=== PATIENT | female | born 1930 | race African-American/Black ===

== ENCOUNTER 2017-01-13 14:01 | Emergency (ER) | payer MEDICARE, BC ==
[~2017-01-13] VITALS: Ht 167.6 cm; Wt 72.6 kg
--- NOTE | 2017-01-13 14:07 | NUR ---
PT IS IN ROOM #1B. DR VERDUZCO EVALUATED THE PT.
[2017-01-13] MEDS ORDERED: OMEP20CA10 PO (14:16)
[2017-01-13] MEDS ORDERED: MECL-102 PO (14:16)
[2017-01-13] MEDS ORDERED: CLON0.1T PO (14:16)
[2017-01-13] MEDS ORDERED: GABA-534 PO (14:16)
[2017-01-13] MEDS ORDERED: LEVO25TA9 PO (14:16)
[2017-01-13] MEDS ORDERED: RIVA15TA2 PO (14:16)
[2017-01-13] MEDS ORDERED: PARO20TA7 PO (14:16)
[2017-01-13] MEDS ORDERED: SOLI5TAB2 PO (14:16)
[2017-01-13] MEDS ORDERED: ACET325T53 PO (14:16)
[2017-01-13] MEDS ORDERED: AMLO5TAB2 PO (14:16)
[2017-01-13] MEDS ORDERED: POTA-88 PO (14:16)
--- NOTE | 2017-01-13 17:10 | NUR ---
PT WAS D/C TO HER [facility] AFTER DR VERDUZCO EVALUATION. D/C INSTRUCTIONS GIVEN TO THE PT AND TO AMBULANCE TEAM.
[2017-01-13 17:11] VITALS: BP 141/71
== END 2017-01-13 17:12 | disposition home or self-care (01) ==
LOC: ER 14:01
DX: L89.519 Pressure ulcer of right ankle, unspecified stage (principal); I10 Essential (primary) hypertension; K21.9 Gastro-esophageal reflux disease without esophagitis; F32.9 Major depressive disorder, single episode, unspecified; E78.5 Hyperlipidemia, unspecified; Z88.6 Allergy status to analgesic agent; Z88.2 Allergy status to sulfonamides
CPT/HCPCS: 99283; A4663